=== PATIENT | male | born 1940 | race Caucasian/White ===

== ENCOUNTER 2018-11-19 10:28 | Day surgery (SDC) | payer OTHER ==
[2018-11-19 11:46] VITALS: BMI 24.6
[2018-11-19 13:40] VITALS: TEMP 97.9
[2018-11-19 14:04] VITALS: PULSE 47
[2018-11-19 14:55] VITALS: BP 128/78
--- NOTE | 2018-11-24 14:16 | PATH ---
Surgical Pathology Report Patient Name: RAMY GAMBINO [facility]. Rec. #: [id number] /Age/Gender: 1940 (Age: 78) / M Account: [id number] Location: [facility]-ENDOSCOPY Taken: 11/19/2018 Received: 11/22/2018 Reported: 11/24/2018 Physicians: Frank Villalpando M.D. Specimen(s) Received A: HEPATIC FLEXURE POLYP B: RIGHT COLON POLYP C: RECTUM POLYP Clinical History h/o colon adenoma. Post-operative diagnosis: Polyps, diverticulosis Final Diagnosis A. HEPATIC FLEXURE, POLYP, BIOPSY: HYPERPLASTIC POLYP. B. RIGHT COLON, POLYP, BIOPSY: TUBULAR ADENOMA. C. RECTUM, POLYP, BIOPSY: TUBULAR ADENOMA. Electronically Signed Kristin Coronado M.D. Gross Description A. Received in formalin, labeled "hepatic flexure polyp" is one piece of dark christensen tissue measuring 0.3 cm in greatest dimension. Entirely submitted in one cassette. B. Received in formalin, labeled "right colon polyp" is one piece of dark christensen tissue measuring 0.3 cm in greatest dimension. Entirely submitted in one cassette. C. Received in formalin, labeled "rectal polyp" is one piece of dark christensen tissue measuring 0.3 cm in greatest dimension. Entirely submitted in one cassette. AE/11/22/2018 ebram/11/22/2018
== END 2018-11-19 14:34 | disposition home or self-care (01) ==
LOC: JASU-ENDO 10:28
PROVIDERS: ATTEND Internal Medicine Gastroenterology
PROC: 0DBL8ZX Excision of Transverse Colon, Via Natural or Artificial Opening Endoscopic, Diagnostic (ICD-10-PCS; 2018-11-19)
PROC: 0DBP8ZX Excision of Rectum, Via Natural or Artificial Opening Endoscopic, Diagnostic (ICD-10-PCS; 2018-11-19)
PROC: 0DBK8ZX Excision of Ascending Colon, Via Natural or Artificial Opening Endoscopic, Diagnostic (ICD-10-PCS; principal; 2018-11-19 11:45)
DX: Z12.11 Encounter for screening for malignant neoplasm of colon (principal); Z86.010 Personal history of colon polyps; K57.30 Diverticulosis of large intestine without perforation or abscess without bleeding; K64.8 Other hemorrhoids; K63.5 Polyp of colon; K62.1 Rectal polyp
CPT/HCPCS: 88305-TC